=== PATIENT | female | born 1950 | race Caucasian/White ===

== ENCOUNTER 2017-05-12 10:54 | Emergency (ER) | payer OTHER ==
[~2017-05-12] VITALS: Ht 157.5 cm; Wt 90.7 kg
[~2017-05-12 10:54] MED LIST: NOHOMEMEDICATIONS
[2017-05-12] MEDS ORDERED: CLEOCIN HCL300 MG PO (12:44)
[2017-05-12] MEDS ORDERED: DOXYCYCLINE 10100 MG PO (12:44)
[2017-05-12] MEDS ORDERED: NORCO 5-325 TA1 EACH PO (12:44)
[2017-05-12] MEDS ORDERED: MOBIC15 MG PO (13:10)
[2017-05-12 13:32] VITALS: BP 114/67
[2017-10-28] MEDS ORDERED: HYDROCHLOROTHIA25 M2 PO (08:16)
[2017-10-28] MEDS ORDERED: SIMVASTATIN40 MG PO (08:16)
[2017-10-28] MEDS ORDERED: COZAAR 50 MG TA50 M2 PO (08:16)
[2017-10-28] MEDS ORDERED: NORVASC5 MG PO (08:17)
[2017-10-28] MEDS ORDERED: ASPIR 8181 MG PO (08:18)
[2017-10-28] MEDS ORDERED: SERTRALINE HCL100 MG PO (08:18)
== END 2017-05-12 13:25 | disposition home or self-care (01) ==
LOC: ER 10:54
DX: S51.852A Open bite of left forearm, initial encounter (principal); I10 Essential (primary) hypertension; Z96.653 Presence of artificial knee joint, bilateral; W54.0XXA Bitten by dog, initial encounter; Y93.89 Activity, other specified; Y92.89 Other specified places as the place of occurrence of the external cause; Y99.8 Other external cause status

== ENCOUNTER → 2017-10-30 | Outpatient (CLI) | payer OTHER ==
[~2017-10-30] VITALS: Ht 157.5 cm; Wt 90.7 kg
[~2017-10-30] MED LIST changes: +ASPIR 8181 MG PO; +CLEOCIN HCL300 MG PO; +COZAAR 50 MG TA50 M2 PO; +DOXYCYCLINE 10100 MG PO; +HYDROCHLOROTHIA25 M2 PO; +MOBIC15 MG PO; +NORCO 5-325 TA1 EACH PO; +NORVASC5 MG PO; +SERTRALINE HCL100 MG PO; +SIMVASTATIN40 MG PO
--- NOTE | ~2017-10-30 | P ---
[facility] [place] [address] PROCEDURE REPORT Name: RICHI SPARKS Room #: REG [facility].#: [id number] Admission: 10/30/17 Attend Phys: Mat Seals MD Discharge: Date of : 54 Report #: [id number] THIS REPORT FOR: //name// CC: Robe Bermudez [facility] physician/PCP Mat Seals OUTPATIENT COLONOSCOPY REPORT BRIEF HISTORY: The patient is a 67-year-old woman whose last colonoscopy was more than 10 years ago. She had setup average risk screening colonoscopy. In the meantime, was evaluated for hematuria and a CAT scan was obtained, which reveals mild thickening of the sigmoid colon. PREOPERATIVE DIAGNOSIS: Average risk screening colonoscopy. POSTOPERATIVE DIAGNOSIS: Moderate sigmoid diverticulosis coli. MEDICATIONS: Deep sedation with propofol per anesthesia. SPECIMEN: None. ESTIMATED BLOOD LOSS: None. PROCEDURE: Colonoscopy to cecum and terminal ileum. FINDINGS: Prior to propofol sedation, procedure of colonoscopy discussed with the patient as well as potential risks and its complications. She indicates she understands and desires to proceed. DESCRIPTION OF PROCEDURE: With the patient in the left lateral decubitus position, digital examination was completed, which revealed no abnormalities. Subsequently, the [employer] video colonoscope was introduced into the rectum and advanced under direct vision to the cecum. Done with minimal difficulty. The cecum was identified by the ileocecal valve and the appendiceal orifice. I was able to visualize the distal segment of the terminal ileum, which was inspected and noted to be unremarkable. At that point, scope was withdrawn and careful circumferential views were obtained including retroflexing the scope in the ascending colon. Upon slow withdrawal of the scope, the prep was noted to be good. The mucosa was within normal limits, normal vascular pattern, normal light reflex. As we withdrew the scope, no mucosal abnormalities were seen. No polyps were seen during this examination. No inflammatory changes were seen. No abnormalities were noted until we reached the sigmoid colon, at which point, she was noted to have moderately severe diverticular disease without endoscopic evidence of diverticulitis. The scope was withdrawn in the rectum and upon retroflexion, no abnormalities were seen. Scope was withdrawn and the patient [facility] [address] [place] [address] PROCEDURE REPORT Name: RICHI SPARKS Room #: REG [facility] [place].#: [id number] Admission: 10/30/17 Attend Phys: Mat Seals MD Discharge: Date of : 54 Report #: [id number] tolerated the procedure well. CONDITION OF THE PATIENT UPON DISCHARGE: Following the procedure, the patient was drowsy, arousable, conversant. She will be discharged home when fully ambulatory. INSTRUCTIONS TO THE PATIENT AND FAMILY AT THE TIME OF DISCHARGE: No neoplastic lesions were seen. This is a negative colorectal screening exam. In addition, she had the abnormal CT as noted above. She does have sigmoid diverticular disease, but I do not see evidence of inflammatory disease or neoplastic disease in the sigmoid colon. There was no endoscopic evidence of diverticulitis. The patient also reports that she had hematuria and was given iron transfusions. Presumably, her blood loss was renal. However, if there is concern about iron deficiency anemia, further evaluation such as an upper endoscopy and potentially an M2 capsule study could be considered at a later date if felt to be indicated. Suggest high fiber diet for the diverticular disease, suggest average risk screening colonoscopy in 10 years. Last colonoscopy was more than 10 years ago. Withdrawal time from the cecum was 13 minutes and 14 seconds. <ELECTRONICALLY SIGNED> By: Mat Seals MD 10/31/17 1126 0905 50 Mat Seals MD /nt
== END | disposition home or self-care (01) ==
LOC: GI 06:45
DX: Z12.11 Encounter for screening for malignant neoplasm of colon (principal); K57.30 Diverticulosis of large intestine without perforation or abscess without bleeding; F32.9 Major depressive disorder, single episode, unspecified; F41.9 Anxiety disorder, unspecified; Z68.36 Body mass index [BMI] 36.0-36.9, adult; I10 Essential (primary) hypertension; E78.5 Hyperlipidemia, unspecified; Z98.890 Other specified postprocedural states; N28.9 Disorder of kidney and ureter, unspecified
CPT/HCPCS: G0105; 62110; 62900

== ENCOUNTER 2018-06-11 14:02 | Inpatient (IN) | payer OTHER ==
[~2018-06-11] VITALS: Ht 157.5 cm; Wt 102.5 kg
--- NOTE | ~2018-06-11 | HC ---
[facility] [place] [address] CONSULTATION Name: RICHI SPARKS Room #: 463-P ADM IN M.R.#: [id number] Admission: 06/11/18 Attend Phys: Wes Long MD Discharge: Date of : 54 Report #: [id number] THIS REPORT FOR: //name// CC: Wes Bermudez REASON FOR THE CONSULTATION: Elevated creatinine. REASON FOR PRESENTATION: Abdominal pain. HISTORY OF PRESENT ILLNESS: A 68-year-old with past medical history of hypertension. She is also known to have chronic kidney disease with a baseline creatinine of 2.0. She has been seeing a [facility] physician. She was told that she has chronic kidney disease due to hypertension. She presented with right-sided abdominal pain yesterday. She describes the pain as progressing crampy abdominal pain with no fever or chills for the last one week. The pain was associated with some dysuria and frequency. She is not known to have kidney stones. No previous similar episodes. No blood in the urine. The patient was found on the CT to have right-sided hydronephrosis with a small transition at the ureteropelvic junction. I am being consulted to manage her chronic kidney disease. PAST MEDICAL HISTORY: 1. Chronic kidney disease with a baseline creatinine of around 2.0: 2. Hypertension. 3. Hyperlipidemia. 4. Bilateral total knee replacement. 5. Depression. 6. Anemia. ALLERGIES: No known drug allergies. MEDICATIONS: 1. Simvastatin. 2. Losartan. 3. Hydrochlorothiazide. 4. Amlodipine. 5. Aspirin. SOCIAL HISTORY: She denies drug or alcohol abuse. 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 REVIEW OF SYSTEMS: GENERAL: No fever or chills. CARDIOVASCULAR: No chest pain or palpitation. PULMONARY: No cough or hemoptysis. [facility] [address] [place] [address] CONSULTATION Name: RICHI SPARKS Room #: 463-P [facility] IN ..#: [id number] Admission: 06/11/18 Attend Phys: Wes Long MD Discharge: Date of : 54 Report #: [id number] GASTROINTESTINAL: No nausea or vomiting. GENITOURINARY: As per the history of present illness. FAMILY HISTORY: No known kidney disease in the family. PHYSICAL EXAMINATION: GENERAL: Alert, oriented, in no apparent distress. VITAL SIGNS: Blood pressure is 123/58. Temperature is 36.7. HEAD AND NECK: No jugular venous distention, no bruit, no thyromegaly. CHEST: Clear to auscultation bilaterally. CARDIOVASCULAR: No rub detected. ABDOMEN: Soft with slight tenderness in the right flank area. No guarding or rigidity. LOWER EXTREMITIES: No edema. LABORATORY DATA: Laboratory values reviewed. Hemoglobin was 10. Creatinine was down from 2.3 to 2.1. Sodium was 139. Potassium was 3.2. UA was significant for blood and urine culture is pending. CT abdomen was consistent with right-sided ureteropelvic junction stenoses with mild hydronephrosis without ureterolithiasis. ASSESSMENT, IMPRESSION AND PLAN: 1. Chronic kidney disease. 2. 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 3. Hematuria. 4. Proteinuria. 5. Potential urinary tract infection. 5. Hypokalemia. 6. Anemia. 7. The patient's creatinine seems to be trending back to her baseline. The hydronephrosis will need to be investigated. I have discussed the case with the admitting team. Plan is to transfer the patient for a hospital that will have a complete urological evaluation started on the patient. 8. Resume her blood pressure medications. 9. Follow urine cultures. 10. We will continue to follow along if the patient stays in the facility. By: [id number] Rodney Barnes MD /nt
[~2018-06-11 14:02] MED LIST changes: -SIMVASTATIN40 MG PO
[2018-06-11 14:03] VITALS: BP 121/71
[2018-06-11 14:24] LABS: URINE BILIRUBIN NEGATIVE (Negative); URINE BLOOD 3+ (Negative); URINE CLARITY CLEAR; URINE COLOR YELLOW; URINE GLUCOSE-RANDOM* NEGATIVE (Negative); URINE KETONES NEGATIVE (Negative); URINE NITRITE-REFLEX POSITIVE (Negative); URINE PROTEIN (DIPSTICK) 1+ (Negative); URINE UROBILINOGEN 0.2 E.U./dl (0.2-1.0)
[2018-06-11 14:25] LABS: URINE LEUKOCYTES-REFLEX 3+ (Negative)
[2018-06-11 14:33] LABS: BACTERIA-REFLEX >30 Many /HPF (None Seen); CASTS None Seen /LPF (None Seen); CRYSTALS None Seen /LPF (None Seen); MUCUS >6 Heavy strn/LPF (None Seen); SQUAMOUS >10 Many /LPF (0-3); URINE RBC >20 Many /HPF (0-2); URINE WBC-REFLEX >25 Many /HPF (0-5)
[2018-06-11] MEDS ORDERED: SIMVASTATIN40 MG PO (15:00)
[2018-06-11] MEDS ORDERED: LOSARTAN POTASS50 MG PO (15:01)
[2018-06-11 15:14] LABS: ABSOLUTE NEUTROPHILS 7.3 thou/uL (1.4-8.2); EOSINOPHILS 1.2 % (0.0-3.0); HEMATOCRIT 34.5 % (37.0-47.0); HEMOGLOBIN 11.9 gm/dL (12.0-15.0); MCH 31.2 pg (26.0-34.0); MCHC 34.4 g/dL (28.0-37.0); MCV 90.8 fL (80.0-100.0); MONOCYTES 9.7 % (1.0-8.0); PLATELET COUNT 245 thou/uL (150-400); POLYS 66.1 % (36.0-66.0); RBC 3.79 mil/uL (4.20-5.00); WBC 11.1 thou/uL (4.0-11.0)
[2018-06-11 15:22] LABS: ANION GAP 12 mmol/L (7-16); BUN 34 mg/dL (7-18); CALCIUM 9.3 mg/dL (8.5-10.1); CHLORIDE 102 mmol/L (98-107); CO2 26 mmol/L (21-32); CREATININE 2.3 mg/dL (0.6-1.0); GLUCOSE 97 mg/dL (74-106); SODIUM 140 mmol/L (136-145)
[2018-06-11 15:24] LABS: POTASSIUM 2.8 mmol/L (3.5-5.1)
--- NOTE | 2018-06-11 15:28 | EKG ---
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1950 Requested By: Bharat Briceno Order Number: [id number] MD: Elmo Villa Measurements Intervals [place] Rate: 58 P: 43 AK: 146 QRS: -23 QRSD: 91 T: 43 QT: 462 QTc: 454 Interpretive Statements Sinus rhythm Borderline left axis deviation Abnormal R-wave progression, late transition Borderline T abnormalities, anterior leads Compared to ECG 06/05/2012 23:58:37 T-wave abnormality now present Poor R-wave progression no longer present Electronically Signed On 06-11-2018 15:28:11 SCENIC ARTS SUPERVISOR by Elmo Villa [email or web address] <ELECTRONICALLY SIGNED> By: Elmo Villa MD 06/11/18 1528 1451 1451 Elmo Villa MD /EPI
[2018-06-11 15:31] LABS: ALBUMIN 3.4 g/dL (3.4-5.0); LIPASE 184 U/L (73-393); SGOT 21 U/L (15-37); SGPT 21 U/L (14-59); TOTAL BILIRUBIN 0.4 mg/dL (<0.1-1.0); TOTAL PROTEIN 7.9 g/dL (6.4-8.2); TROPONIN-I <0.06 ng/mL (<0.06)
[2018-06-11 18:21] VITALS: BP 121/56
[2018-06-11 18:30] VITALS: BP 119/58
[2018-06-11 19:15] VITALS: BP 139/55
[2018-06-12 02:55] VITALS: BP 98/40
--- NOTE | 2018-06-12 05:06 | NUR ---
PT ARRIVED TO UNIT AT 1845 AND WAS ASSISTED WITH SBA TO BED. SLIGHTLY UNSTEADY/WEAK ON FEET. FALL RISK BUNDLE IMPLEMENTED. FULL ASSESSMENT COMPLETED. RECONCILED HOME MED LIST AND REVIEWED ALL ORDERS. ADMISSION PROFILE COMPLETED. PAIN CURRENTLY OKAY. MAIN CONCERN IS THAT SHE IS HUNGRY. REGULAR DIET ORDERED SO BOX MEAL WAS PROVIDED. PT TOLERATED WELL WITH NO N/V.
[2018-06-12 05:21] LABS: HEMATOCRIT 29.5 % (37.0-47.0); MCH 31.3 pg (26.0-34.0); MCHC 33.8 g/dL (28.0-37.0); MCV 92.6 fL (80.0-100.0); RBC 3.19 mil/uL (4.20-5.00); RDW 12.9 % (10.5-14.5); WBC 8.5 thou/uL (4.0-11.0)
[2018-06-12 05:59] LABS: ALBUMIN 2.7 g/dL (3.4-5.0); CALCIUM 8.1 mg/dL (8.5-10.1); CREATININE 2.1 mg/dL (0.6-1.0); POTASSIUM 3.2 mmol/L (3.5-5.1); TOTAL BILIRUBIN 0.3 mg/dL (<0.1-1.0); TOTAL PROTEIN 6.4 g/dL (6.4-8.2)
[2018-06-12 08:11] VITALS: BP 123/58
--- NOTE | 2018-06-12 13:38 | NUR ---
PT ADMITTED RELATED TO [facility]. CM REVIEWED CHART AND SPOKE WITH CARE TEAM. CM MET WITH PT AT BEDSIDE THIS DAY. PT IS A&0X4. CM ROLE INTRODUCED. PT INDICATED SHE LIVES IN A HOUSE WITH HER PARTNER WITH MULTIPAL STEPS TO EB=NTER AND STEPS INSIDE. PT INDICATED SHE HAD BEEN INDEPENDEBT WITH GAIT AND [facility] AND HADN'T BEEN USING ANY DME. SHE INDICATED SHE HAD USED [facility] IN THE PAST. SHE INDICATED SHE PLANS TO RETURN HOME ONCE MEDICALLY STABLE. CM TO FOLLOW INDICATED WITH DC PLANNING.
--- NOTE | 2018-06-12 13:44 | NUR ---
PHYSICIAN INDICATED THAT PT MAY NEED TO TRANSFER FOR UROLOGY SERVICES. HE INDICATED THAT THEY WERE INTERESTED IN PT GOING TO [facility]. CM CALLED [facility] AND FAXED OVER REFERRAL. CM REQUESTED CHART COPY. CM SPOKE WIHT PT AND SHE IS AGREEABLE WITH TRANSFER AND SIGNED TRANSFER FORM. CM COMPLETED [facility] FORM FOR TRANSPORT AND IS AWAITING RESPONSE FROM [facility].
[2018-06-12 14:53] VITALS: BP 113/58
--- NOTE | 2018-06-12 15:18 | NUR ---
ASSUMED CARE OF PATIENT AT 0700. VSS, PAIN MANAGED WITH MEDICAITIONS, SEEN BY DR. HERNANDEZ FOR RENAL FUNCTION, WILL BE TRANSFERING TO [facility] FOR UROLOGY SERVICES. UP AB JUWAN, DENIES NAUSEA AND DIARRHEA. ABLE TO MAKE NEEDS KNOWN. CALL LIGHT IN REACH.
--- NOTE | 2018-06-12 16:03 | NUR ---
CM CALLED [facility] AND ASKED ABOUT PROGREES OF REFERRAL SENT FOR POSSIBLE TRANSFER TO [facility]. THEY INDICATED THAT INFO HAD BEEN SENT TO [facility] AND THAT IT WAS BEING REVIEWED. STILL AWAITING RESPONSE. TRANSFER FORM AND [facility] TRANSPORT FORM ARE ON THE CHART THEY HAVE THE NUMBER TO THE UNIT AND WILL CALL SHOULD THEY BE ABLE TO ACCEPT PT.
[2018-06-12 20:30] VITALS: BP 123/53
--- NOTE | 2018-06-13 04:31 | NUR ---
ASSESSMENT DOCUMENTED. COMPLAINT OF PAIN ON THE ABDOMEN STARTING FROM THE PELVIS GOING TO THE ABDSOMEN AND TO THE BACK. PRN MEDS FOR PAIN GIVEN WHICH AFFORDED RELIEF FROM 12/19 TO 7 ONLY. ON FALL PRECAUTION. ASSIST X1. FF UP POC.
[2018-06-13 04:34] VITALS: BP 120/56
[2018-06-13 05:47] LABS: ABSOLUTE NEUTROPHILS 3.6 thou/uL (1.4-8.2); EOSINOPHILS 5.1 % (0.0-3.0); HEMATOCRIT 30.2 % (37.0-47.0); HEMOGLOBIN 10.2 gm/dL (12.0-15.0); MCH 31.8 pg (26.0-34.0); MCHC 33.8 g/dL (28.0-37.0); MONOCYTES 9.4 % (1.0-8.0); PLATELET COUNT 197 thou/uL (150-400); POLYS 52.5 % (36.0-66.0); RBC 3.22 mil/uL (4.20-5.00); RDW 13.2 % (10.5-14.5); WBC 6.9 thou/uL (4.0-11.0)
[2018-06-13 06:02] LABS: CALCIUM 8.2 mg/dL (8.5-10.1); POTASSIUM 4.1 mmol/L (3.5-5.1)
--- NOTE | 2018-06-13 15:39 | NUR ---
TOWARDS POC PT A/O X4, VSS, AFEBRILE, NO NV. PT IS VOIDING WELL. PAIN MANAGED BY MEDS-SEE MAR. PT WAS NOT XFER TO [facility] FOR UROLOGY EVALUATION. WILL STAY UNTIL TOMMOROW. WILL SCHEDULE URO CONSULT OUTPATIENT.
[2018-06-13 15:48] VITALS: BP 129/61
[2018-06-13 19:19] VITALS: BP 137/52
[2018-06-14 03:58] VITALS: BP 118/49
[2018-06-14 05:40] LABS: ALBUMIN 2.8 g/dL (3.4-5.0); CREATININE 1.9 mg/dL (0.6-1.0); PHOSPHORUS 3.8 mg/dL (2.5-4.9); POTASSIUM 4.4 mmol/L (3.5-5.1)
[2018-06-14 06:55] VITALS: BP 142/60
--- NOTE | 2018-06-14 07:36 | NUR ---
PT MAKING SLOW PROGRESS TOWARDS GOALS. UPON INITIAL ASSESSMENT PT WAS UPSET THAT SHE WAS NOT BEING TRANSFERRED TO ANOTHER HOSPITAL FOR UROLOGY SERVICES. ENCOURAGED PT TO SPEAK WITH PHYSICIANS TODAY. ALSO C/O PAIN MEDICATIONS WERE NOT GIVEN BY DAY RN AT 1900. INFORMED AND ENCOURAGED PT TO CALL IF SHE WAS NEEDING PAIN MEDICINE, INFORMED OF THEIR PRN STATUS. PT VOICED UNDERSTANDING. PAIN MEDS GIVEN PER ORDERS OVERNIGHT. SEE CHARTING.
[2018-06-14 13:40] VITALS: BP 117/56
[2018-06-14 20:15] VITALS: BP 141/65
--- NOTE | 2018-06-14 20:52 | NUR ---
WEBBING TACKER ACTIVATED FOR CHEST/EPIGASTRIC PAIN. SEE INTERVENTION FOR DETAILS. RUMA WILKS TECHNICIAN PREVENTATIVE MEDICINE TO BEDSIDE. PAIN RELIEVED AFTER ZOFRAN. REMAINED ON UNIT, PLACED ON TELE.
[2018-06-15 04:42] VITALS: BP 129/60
--- NOTE | 2018-06-15 06:04 | NUR ---
Assumed care at 1845. Pt complained of chest pain. Call [facility] [employer] and the OVENS SUPERVISOR cash applications clerk. Got orders for troponin and EKG. They both came back normal. Got orders for a gastric cocktail and gave the pt zofran. She hasnt had issues ever since. No identified needs at the moment. Will continue to monitor.
[2018-06-15 06:10] LABS: HEMATOCRIT 28.5 % (37.0-47.0); HEMOGLOBIN 9.5 gm/dL (12.0-15.0); MCH 31.1 pg (26.0-34.0); MCHC 33.3 g/dL (28.0-37.0); MCV 93.6 fL (80.0-100.0); RBC 3.05 mil/uL (4.20-5.00); RDW 12.8 % (10.5-14.5); WBC 6.5 thou/uL (4.0-11.0)
[2018-06-15 06:26] LABS: CALCIUM 8.2 mg/dL (8.5-10.1); CREATININE 1.9 mg/dL (0.6-1.0); MAGNESIUM 1.9 mg/dL (1.8-2.4); POTASSIUM 4.5 mmol/L (3.5-5.1)
[2018-06-15 08:29] VITALS: BP 1258/64
--- NOTE | 2018-06-15 08:42 | EKG ---
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 06/15/18 0841 43 Eber Vincent MD, [facility] /EPI
[2018-06-15] MEDS ORDERED: HYDROCODONE-AP1 EAC6 PO ×2 (09:09→10:04)
[2018-06-15] MEDS ORDERED: CEFUROXIME500 MG PO (09:09)
[2018-06-15 09:28] VITALS: BP 1258/64
--- NOTE | 2018-06-15 10:22 | NUR ---
CARE TEAM INDICATED THAT PT IS TO DISCHARGE HOME THIS DAY ON ORAL ABX AND THAT SHE IS TO FOLLOW UP WITH UROLOGY AN OUTPATIENT. NO OTHER CM INTERVENTIOM INDICATED. CASE CLOSED.
--- NOTE | 2018-06-15 16:55 | NUR ---
PT ORDER RECEIVED, CHART REVIEWED. PT ATTEMPTED TO SEE Pt IN AM, HOWEVER Pt HAD ALREADY DISCHARGED FROM HOSPITAL.
== END 2018-06-15 10:36 | disposition home or self-care (01) | DRG 682 ==
LOC: ER 14:02 → EROBS 17:20 → 4W 17:20 → ENTRNSPT 06-15 10:16 → EDTRNSPTSTS 06-15 10:17 → 4W 06-15 10:36
PROVIDERS: Emergency Medicine; Internal Medicine; Internal Medicine Nephrology; Nurse Practitioner; ADMIT Hospitalist
DX: N17.0 Acute kidney failure with tubular necrosis (principal); E43 Unspecified severe protein-calorie malnutrition; Z68.41 Body mass index [BMI] 40.0-44.9, adult; Q62.11 Congenital occlusion of ureteropelvic junction; E46 Unspecified protein-calorie malnutrition; N13.6 Pyonephrosis; Z79.899 Other long term (current) drug therapy; N18.4 Chronic kidney disease, stage 4 (severe); D64.9 Anemia, unspecified; I12.9 Hypertensive chronic kidney disease with stage 1 through stage 4 chronic kidney disease, or unspecified chronic kidney disease; E87.6 Hypokalemia; E78.5 Hyperlipidemia, unspecified; B96.1 Klebsiella pneumoniae [K. pneumoniae] as the cause of diseases classified elsewhere; F32.9 Major depressive disorder, single episode, unspecified; Z96.653 Presence of artificial knee joint, bilateral; E66.9 Obesity, unspecified; Z87.442 Personal history of urinary calculi; Z79.82 Long term (current) use of aspirin
CPT/HCPCS: 10040

== ENCOUNTER → 2020-06-22 | Outpatient (CLI) | payer OTHER ==
[~2020-06-22] MED LIST changes: +CEFUROXIME500 MG PO; +HYDROCODONE-AP1 EAC6 PO; +LOSARTAN POTASS50 MG PO; +SIMVASTATIN40 MG PO
[2020-06-22 09:07] LABS: CREATININE 1.8 mg/dL (0.6-1.0)
== END ==
LOC: CAT 06-05 10:37 → LAB 08:22
PROVIDERS: ATTEND Family Medicine
DX: J84.10 Pulmonary fibrosis, unspecified (principal); I25.10 Atherosclerotic heart disease of native coronary artery without angina pectoris; N13.30 Unspecified hydronephrosis; J98.4 Other disorders of lung